=== PATIENT | female | born 1985 | race Asian ===

== ENCOUNTER 2023-07-26 12:59 | Outpatient (REF) | payer OTHER, SELFPAY ==
[2023-07-26 15:25] LABS: Influenza A PCR NEGATIVE (Negative); Influenza B PCR NEGATIVE (Negative); Resp Syncy Virus RNA Qual PCR NEGATIVE (Negative); SARS COV2 PCR INHOUSE NEGATIVE (Negative)
== END 2023-07-26 13:00 | disposition home or self-care (01) ==
LOC: HO.CHCLNP 12:59
PROVIDERS: Visit Provider Family Medicine
DX: R05.2 Subacute cough (principal)
CPT/HCPCS: 0241U

== ENCOUNTER 2023-07-26 16:41 | Outpatient (REF) | payer OTHER, SELFPAY ==
--- NOTE | ~2023-07-26 | XR_ITS ---
EXAMINATION: CHEST 2 VIEW RIGHT RIBS 3 VIEWS CLINICAL INFORMATION: 38-year-old woman with persistent right-sided rib pain, no trauma. COMPARISON: None. TECHNIQUE: 2 views of the chest and 3 views of the right rib cage. FINDINGS: CHEST: The cardiomediastinal silhouette is within normal limits. Pulmonary vascularity is normal. The lungs are clear. No consolidation or effusion. The thoracic spine is unremarkable. RIGHT RIBS: No displaced rib fracture. No appreciable XR/XR chest 2V IMPRESSION: No consolidation or effusion. No visible rib fracture or focal osseous lesion.
--- NOTE | ~2023-07-26 | XR_ITS ---
EXAMINATION: CHEST 2 VIEW RIGHT RIBS 3 VIEWS CLINICAL INFORMATION: 38-year-old woman with persistent right-sided rib pain, no trauma. COMPARISON: None. TECHNIQUE: 2 views of the chest and 3 views of the right rib cage. FINDINGS: CHEST: The cardiomediastinal silhouette is within normal limits. Pulmonary vascularity is normal. The lungs are clear. No consolidation or effusion. The thoracic spine is unremarkable. RIGHT RIBS: No displaced rib fracture. No appreciable XR/XR ribs RT 2V IMPRESSION: No consolidation or effusion. No visible rib fracture or focal osseous lesion.
== END 2023-07-26 16:42 | disposition home or self-care (01) ==
LOC: HO.XRAY 16:41
PROVIDERS: PCP Family Medicine; Visit Provider Family Medicine
DX: R07.81 Pleurodynia (principal); R05.2 Subacute cough
CPT/HCPCS: 71046; 71100

== ENCOUNTER 2024-03-04 13:03 | Outpatient (REF) | payer OTHER, SELFPAY ==
[2024-03-04 15:01] LABS: HCG Quantitative 34024 mIU/mL
== END 2024-03-04 13:04 | disposition home or self-care (01) ==
LOC: HO.CHCLDS 13:03
PROVIDERS: Visit Provider Family Medicine
DX: Z32.01 Encounter for pregnancy test, result positive (principal)
CPT/HCPCS: 36415; 84702

== ENCOUNTER 2024-11-29 13:50 | Outpatient (REF) | payer MEDICAID, SELFPAY ==
--- OUTSIDE RECORDS SUMMARY | 2024-11-29 13:54 | XMS_ITS | Clinical Summary ---
Author Organization [facility] Address [address] [place] [id number] Care Team Providers Care Vice President Of Marketing Name Role Phone Unavailable Primary Care Provider Unavailabl e Social History Tobacco Use Types Packs/Day Years Used Date Smoking Tobacco: Never Assessed Comments Unknown Sex and Gender Information Value Date Recorded Sex Assigned at Not on file Legal Sex Female 9:21 AM EST Gender Identity Not on file Sexual Orientation Not on file Plan of Treatment Health Maintenance Due Date Last Done Comments DTaP,Tdap,and Td Vaccines (1 - Tdap) 2006 Hepatitis B Vaccines (1 of 3 - 19+ 3-dose series) 2006 Cervical Cancer Screening: P ap Smear 2008 COVID-19 Vaccine ( - 2023-2 5 season) 2023 Depression Screening 04/24/2024 Influenza Vaccine (#1) 2024 HIB Vaccines Aged Out No longer eligi ble based on patient's age to complete this topic HPV Vaccines Aged Out No longer eligi ble based on patient's age to complete this topic Hepatitis A Vaccines Aged Out No long er eligible based on patient's age to complete this topic IPV Vaccines Aged Out No longer eligi ble based on patient's age to complete this topic MMR Vaccines Aged Out No longer eligi ble based on patient's age to complete this topic Meningococcal ACWY Vaccine Aged Out N o longer eligible based on patient's age to complete this topic Meningococcal B Vaccine Aged Out No l onger eligible based on patient's age to complete this topic Pneumococcal Vaccine: Pediat rics (0 to 5 Years) and At-Risk Patients (6 to 49 Years) Aged Out No longer eligible b ased on patient's age to complete this topic RSV Immunization Patients Un mansi 20 months Aged Out No longer eligible b ased on patient's age to complete this topic Varicella Vaccines Aged Out No longer eligible based on patient's age to complete this topic
[2024-11-29 16:16] LABS: MANUAL DIFF FLAG NO
[2024-11-29 16:18] LABS: Hematocrit 33.4 % (37.0-47.0); Hemoglobin 11.3 g/dl (12.0-16.0); Imm Gran Abs Auto 0.02 X10*3/uL (0.00-0.03); Imm Gran Pct Auto 0.3 % (0.0-0.4); Lymphocytes Absolute Auto 3.7 X10*3/uL (1.2-4.9); Mean Corpuscular HGB Conc 33.8 g/dl (31.0-35.0); Mean Corpuscular Hemoglobin 26.9 pg (27.0-33.0); Mean Corpuscular Volume 79.5 fL (80.0-98.0); NRBC Abs Auto 0.000 X10*3/uL (0.0-0.012); NRBC Pct Auto 0.0 /100WBC (0.0-0.2); Platelet Count 293 X10*3/uL (160-400); Red Blood Count 4.20 X10*6/uL (4.20-5.50); White Blood Count 8.0 X10*3/uL (4.8-10.8)
[2024-11-29 16:32] LABS: Alanine Aminotransferase 11 U/L (0-31); Albumin Level 4.4 g/dL (3.5-5.0); Alkaline Phosphatase 64 U/L (39-117); Amylase 61 U/L (28-100); Anion Gap 11 (12-20); Aspartate Amino Transferase 21 U/L (5-31); Blood Urea Nitrogen 12 mg/dL (9-16); Calcium 8.8 mg/dL (8.4-10.2); Carbon Dioxide 25 mmol/L (22-29); Chloride 106 mmol/L (96-108); Estimated Glomerular Filt Rate > 60; Lipase 25 U/L (8-78); Potassium 3.7 mmol/L (3.3-5.1); Sodium 138 mmol/L (135-145); Total Protein 7.4 g/dL (6.5-8.0)
== END 2024-11-29 13:51 | disposition home or self-care (01) ==
LOC: HO.HHCL 13:50
PROVIDERS: PCP Family Medicine; Visit Provider Internal Medicine
DX: R10.31 Right lower quadrant pain (principal); R12 Heartburn
CPT/HCPCS: 36415; 80053; 82150; 83690; 85025

== ENCOUNTER 2024-12-02 16:37 | Outpatient (REF) | payer MEDICAID, SELFPAY ==
--- OUTSIDE RECORDS SUMMARY | 2024-12-02 16:39 | XMS_ITS | Clinical Summary ---
Author Organization [facility] [[email or web address]] Address [address] [place] [id number] Care Team Providers Care Supervisor Telephone Answering Service Name Role Phone Unavailable Primary Care Provider [...]
== END 2024-12-02 16:38 | disposition home or self-care (01) ==
LOC: HO.HHCLNP 16:37
PROVIDERS: Visit Provider Internal Medicine
DX: R12 Heartburn (principal)
CPT/HCPCS: 87338

== ENCOUNTER 2025-03-04 15:47 | Outpatient (REF) | payer MEDICAID, SELFPAY ==
--- NOTE | ~2025-03-04 | US_ITS ---
EXAMINATION: US PELVIS CLINICAL INFORMATION: pelvic/lower abdominal pain COMPARISON: None available. TECHNIQUE: Ultrasound of the pelvis is performed using both transabdominal and transvaginal transducers along with Doppler. Transvaginal imaging is performed due to inadequate visualization transabdominally. FINDINGS: Uterus: The uterus is anteflexed and measures 9.0 x 4.2 cm. The double wall endometrial thickness is 11 mm. The uterus appears heterogeneous with coarse echotexture.. No visible fibroid. Adnexa: Both ovaries are visualized. There is normal color flow to the adnexa. There is no ovarian torsion. There is no pelvic ascites or fluid collection. Right ovary measures 3.2 x 1.8 x 1.9 cm. Left ovary measures 4.4 x 2.3 x 2.8 cm. There is a 2.7 cm dominant follicle. US/US pelvic and transvaginal IMPRESSION: Heterogeneous coarse echotexture of the uterus without discrete fibroid raises question of adenomyomatosis. Electronically signed by: Bora Alonso MD 03/04/2025 04:58 PM EST
--- OUTSIDE RECORDS SUMMARY | 2025-03-04 17:14 | XMS_ITS | Clinical Summary ---
Author Organization [facility] Address [address] [place] [phone] Care Team Providers Care Vacuum Drier Tender Name Role Phone Unavailable Primary Care Provider [...] Cervical Cancer Screening: P ap Smear 2008 HPV Vaccines (1 - 3-dose SCD M series) 2014 Depression Screening 04/24/2024 COVID-19 Vaccine ( - 2023-2 5 season) 2024 Influenza Vaccine (#1) 2024 RSV Immunization Adult Patie nts (1 - 1-dose 75+ series) 2062 HIB Vaccines Aged Out No longer eligi [...]
--- OUTSIDE RECORDS SUMMARY | 2025-03-04 17:14 | XMS_ITS | Encounter Summary ---
Author Organization [facility] [employer] [facility] Address [address] [place] [address] [address] [place] [address] Care Team Providers Care Design Project Manager Name Role Phone Elis Vitale MD Primary Care Provider [phone] Reason for Visit * Reason Onset Date Comments Referral 03/18/2024 Encounter Details Date Type Department Care Team ([facility] st Contact Info) Description 03/18/2024 Telephone [facility] MEDICINE [address] [place] [address] Elis Vitale MD [address] [place] [phone] Referral Social History Tobacco Use Types Packs/Day Years Used Date Smoking Tobacco: Never Smokeless Tobacco: Never Comments Unknown Sex and Gender Information Value Date Recorded Sex Assigned at Female 02/21/2022 10:38 AM EDT Legal Sex Female 10:38 AM EDT Gender Identity Female 02/21/2022 10:38 AM EDT Sexual Orientation Straight 02/21/2022 10 :38 AM EDT documented as of this encounter Miscellaneous Notes * Telephone Encounter - Yolande Wing - 03/18/2024 4:52 PM EST VM left for patient with information for [facility], they do accept [facility]. * Telephone Encounter - Justen Maradiaga - 03/18/2024 2:59 PM EST Tc from pt calling in regards to OBGYN referral requesting a alternative facility due to current one not taking pt's insurance. If any questions you can contact pt at [phone]. documented in this encounter Plan of Treatment Not on file documented as of this encounter Visit Diagnoses Not on filedocumented in this encounter Care Teams Design Project Manager Relationship Specialty Start Date End Date Elis Vitale MD [address] [place] [phone] PCP - General Family Medicine 05/31/21 documented as of this encounter
--- OUTSIDE RECORDS SUMMARY | 2025-03-04 17:14 | XMS_ITS | Clinical Summary ---
Author Organization [facility] Address [address] [place] [address] [address] [place] [address] Care Team Providers Care Carrier Washer Name Role Phone Elis Vitale MD Primary Care Provider Allergies No known active allergies Medications albuterol 108 (90 Base) MCG/ACT inhaler INHALE 2 PUFFS 4 TIMES EVERY DAY 09/15/2021 Active ipratropium (Atrovent) 0.06 % nasal spray INHALE 2 SPRAYS EACH NOSTIRL 4 TIMES PER DAY 07/19/2023 Active benzonatate (Tessalon) 200 MG capsule TAKE 1 CAPSULE (ORAL) 2 TO 3 TIMES PER DAY (COUGH) FOR 14 DAYS 07/19/2023 Active multivitamin () 27-0.8 MG tabletIndicatio ns: test positive Take 1 tablet by mouth Once per day. 120 tablet 3 03/07/2024 Active famotidine (Pepcid) 20 MG tabletIndicatio ns:Heartburn Take 1 tablet (20 mg) by mouth 2 times daily. 60 tablet 11/29/2024 6 Active Active Problems Problem Noted Date Diagnosed Date RLQ abdominal pain 11/29/2024 Assessment & Plan (11/29/2024 1:54 PM EDT): Patient will be contacted with results Heartburn 11/29/2024 Assessment & Plan (11/29/2024 1:54 PM EDT): I advise patient to avoid NSAIDs, spicy and acid food, I advise to eat at the same time every day, I advise to elevate the head of the bed and take medications as prescribe Subacute cough 07/26/2023 Assessment & Plan (07/26/2023 9:19 PM EDT): Persistent cough and right-sided pain with no history of trauma or chronic respiratory conditions. Plan to send the patient for x-rays of the lungs and ribs to rule out any underlying issues. Prescribed antibiotics and dextromethorphan for the cough, given the duration and severity of symptoms. Advised to complete the x- rays at [facility] within two days. Follow-up will be based on the results of the x-rays. Rib pain on right side 07/26/2023 Encounters Date Type Department Care Team Description 02/19/2025 3:15 PM EDT Nurse Only [facility] [address] [place] [address] Magalie Powers RN Encounter for immunization 02/19/2025 Travel from Last 3 Months Immunizations Immunization Administration Dates Next Due Influenza injectable quadriv alent preservative free 02/07/2023,01/10/2022,01/27/2021 Influenza, seasonal, injecta ble, preservative free 02/19/2025,01/23/2024 Social History Tobacco Use Types Packs/Day Years Used Date Smoking Tobacco: Never Smokeless Tobacco: Never Tobacco Cessation:Counseling Given: Not Answered Comments No Sex and Gender Information Value Date Recorded Sex Assigned at Female 02/21/2022 10:38 AM EDT Legal Sex Female 10:38 AM EDT Gender Identity Female 02/21/2022 10:38 AM EDT Sexual Orientation Straight 02/21/2022 10 :38 AM EDT Last Filed Vital Signs Vital Sign Reading Time Taken Comments Blood Pressure 135/78 11/29/2024 1:10 PM EDT Pulse 78 11/29/2024 1:10 PM EDT Temperature 36.7 C (98 F) 11/29/2024 1:10 PM EDT Respiratory Rate 16 11/29/2024 1:10 PM EDT Oxygen Saturation 98% 06/17/2022 2:19 PM EST Inhaled Oxygen Concentration - - Weight 81.9 kg (180 lb 9.6 oz) 11/29/2024 1:10 P M EDT Height 162.6 cm (5' 4 ) 11/29/2024 1:10 PM EDT Body Mass Index 31 11/29/2024 1:10 PM EDT Plan of Treatment Health Maintenance Due Date Last Done Comments Dental Prophylaxis 1987 Depression Screening 1987 SDOH Screening 1987 Disability Screening 1987 Alcohol/Substance Use Screening 1999 Family Planning (PISQ) 2002 HPV Vaccines (1 - 3-dose series) 2002 DTaP/Tdap/Td Vaccines (1 - Tdap) 2006 Hepatitis B Vaccines (1 of 3 - 19+ 3-dose series) 2006 Dental Oral Exam 07/30/2022 01/28/2022 Dental X-Ray: Bitewings 01/29/2023 01/28/2022, 11/05 COVID-19 Vaccine ( season) 2024 09/14/2020, 08/24/2020 Dental X-Ray: Full Mouth 01/29/2025 01/28/2022 Tobacco Screening 11/29/2025 11/29/2024 Cervical Cancer Screening 07/22/2026 HPV/Cotest 07/22/2026 07/22/2021 Pap Smear 07/22/2026 07/22/2021 Zoster Vaccines (1 of 2) 2037 RSV Patients and Patients Aged 60 years or older (1 - 1-dose 75+ series) 2062 HIV Screening Completed 05/31/2021 Hepatitis C Screening Completed 05/31/2021 Influenza Vaccine Completed 02/19/2025, , 02/07/2023, Additional history exists HIB Vaccines Aged Out No longer eligi [...] patient's age to complete this topic Meningococcal Vaccine Aged Out No jim mumtaz eligible based on patient's age to complete this topic Pneumococcal Vaccine: Pediatrics (0 to 5 Years) and At-Risk Patients (6 to 49) Years Aged Out No longer eligible based on patient's age to complete this topic RSV under 20 months Aged Out No longe r eligible based on patient's age to complete this topic Rotavirus Vaccines Aged Out No longer eligible based on patient's age to complete this topic Procedures Procedure Name Priority Date/Time Associated Diagnosis Comments US PELVIS TRANSVAGINAL Routine 3:55 PM EST RLQ abdominal pain HELICOBACTER PYLORI AG, EIA, STOOL Routine 12/02/2024 11:45 AM EDT Heartburn INTRAORAL - COMPLETE SERIES OF RADIOGRAPHIC IMAGES Routine 01/28/2022 12:00 AM EDT COMPREHENSIVE ORAL EVALUATION - NEW OR ESTABLISHED PATIENT Routine 01/28/2022 12:00 AM EDT THINPREP IMAGING PAP AND HPV MRNA E6/E7 WITH REFLEX TO HPV 16,18/45 Routine 07/22/2021 4:29 PM EDT ZZZ HISTORICAL HEPATITIS C AB W/REFL TO HCV RNA, QN, PCR Routine 05/31/2021 10:03 AM EST HIV 1/2 ANTIGEN/ANTIBODY, FOURTH GENERATION W/RFL Routine 05/31/2021 10:03 AM EST from Last 3 Months or Most Recently Relevant to Health Maintenance Results * US Pelvis Transvaginal (03/04/2025 3:55 PM EST) Anatomical Region Laterality Modality Pelvis Ultrasound 03/04/2025 3:55 PM EST Narrative 03/04/2025 5:01 PM EST [address] [address] Ultrasound Report Signed Patient: Brittany Resendiz MR#: [id number] : 1985 Acct:[id number] Age/Sex: 39 / F ADM Date: 03/04/25 Loc: HO.US Attending Dr: Anne Clarke MD Ordering Physician: Anne Crump MD Date of Service: 03/04/25 Procedure(s): US pelvic and transvaginal Accession Number(s): [id number] cc: Anne Crump MD; Elis Vitale MD Reason for Exam: pelvic/lower adomen pain EXAMINATION: US PELVIS CLINICAL INFORMATION: pelvic/lower abdominal pain COMPARISON: None available. TECHNIQUE: Ultrasound of the pelvis is performed using both transabdominal and transvaginal transducers along with Doppler. Transvaginal imaging is performed due to inadequate visualization transabdominally. FINDINGS: Uterus: The uterus is anteflexed and measures 9.0 x 4.2 cm. The double wall endometrial thickness is 11 mm. The uterus appears heterogeneous with coarse echotexture.. No visible fibroid. Adnexa: Both ovaries are visualized. There is normal color flow to the adnexa. There is no ovarian torsion. There is no pelvic ascites or fluid collection. Right ovary measures 3.2 x 1.8 x 1.9 cm. Left ovary measures 4.4 x 2.3 x 2.8 cm. There is a 2.7 cm dominant follicle. US/US pelvic and transvaginal IMPRESSION: Heterogeneous coarse echotexture of the uterus without discrete fibroid raises question of adenomyomatosis. Electronically signed by: Bora Alonso MD 03/04/2025 04:58 PM [facility] Dictated By: Bora Alonso MD Signed By: <Electronically signed by Bora Alonso MD in OV> 03/04/25 1658 DD/ 1555 TD/TT: 03/04/25 1621 Document Clerk: Procedure Note Donotuseinterpreter, Image - 03/04/[address] [address] Ultrasound Report Signed Patient: Sary Resendiz#: [id number] : 1985Acct:[id number] Age/Sex: 39 / FADM Date: 03/04/25 Loc: HO.US Attending Dr: Anne Clarke MD Ordering Physician: Anne Crump MD Date of Service: 03/04/25 Procedure(s): US pelvic and transvaginal Accession Number(s): [id number] cc: Anne Crump MD; Elis Vitale MD Reason for Exam: pelvic/lower adomen pain EXAMINATION: US PELVIS CLINICAL INFORMATION: pelvic/lower abdominal pain COMPARISON: None available. TECHNIQUE: Ultrasound of the pelvis is performed using both transabdominal and transvaginal transducers along with Doppler. Transvaginal imaging is performed due to inadequate visualization transabdominally. FINDINGS: Uterus: The uterus is anteflexed and measures 9.0 x 4.2 cm. The double wall endometrial thickness is 11 mm. The uterus appears heterogeneous with coarse echotexture.. No visible fibroid. Adnexa: Both ovaries are visualized. There is normal color flow to the adnexa. There is no ovarian torsion. There is no pelvic ascites or fluid collection. Right ovary measures 3.2 x 1.8 x 1.9 cm. Left ovary measures 4.4 x 2.3 x 2.8 cm. There is a 2.7 cm dominant follicle. US/US pelvic and transvaginal IMPRESSION: Heterogeneous coarse echotexture of the uterus without discrete fibroid raises question of adenomyomatosis. Electronically signed by: Bora Alonso MD 03/04/2025 04:58 PM [facility] Dictated By: Bora Alonso MD Signed By: <Electronically signed by Bora Alonso MD in OV> 03/04/25 1658 DD/ 1555 TD/TT: 03/04/25 1621 Document Clerk: Anne Clarke MD [facility] US PROCEDURES Fin al Result * Helicobacter pylori??Antigen, EIA, Stool (12/02/2024 11:45 AM EDT) H pylori Ag Stool SEE NOTE [facility] Comment:HELICOBACTER PYLORI AG, EIA, STOOL Micro Number: [id number] Test Status: Final Specimen Source: Stool Specimen Quality: Adequate H.pylori Ag: Not Detected Antimicrobials, proton pump inhibitors, and bismuth preparations inhibit H. pylori and ingestion up to two weeks prior to testing may cause false negative results. If clinically indicated the test should be repeated on a new specimen obtained two weeks after discontinuing treatment. Reference Range: Not DetectedTHIS TEST WAS PERFORMED AT:[facility] [address] [id number] TERESA DELATORRE MD Stool Rectal contents / Unknown 12/02/2024 11:45 AM EDT 12/02/2024 4:37 PM EDT Anne Clarke MD LAB BODY FLUIDS AND S TOOLS ORDERABLES Final Result [facility] [address] [place] [address] [phone] * THINPREP TIS PAP AND HPV mRNA E6/E7 WITH REFLEX TO HPV 16,18/45 (07/22/2021 4:29 PM EDT) Clinical Information: None given [facility] COMMENT SEE COMMENT [facility] Comment: EXPLANATORY NOTE: The Pap is a screening test for cervical cancer. It is not a diagnostic test and is subject to false negative and false positive results. It is most reliable when a satisfactory sample, regularly obtained, is submitted with relevant clinical findings and history, and when the Pap result is evaluated along with historic and current clinical information. COMMENT: This Pap test has been evaluated with computer assisted technology. [facility] Maintenance Of Way Supervisor: SEE COMMENT [facility] Comment: [facility], CT(ASCP) CT screening location: [address] [address] HPV nRNA E6/E7 Not Detected Not Detected [facility] Comment: Methodology: Superintendent Service-Mediated Amplification This assay detects E6/E7 viral messenger RNA (mRNA) from 14 high-risk HPV types (16,18,31,33,35,39,45,51,52,56,58,59,66,68). The analytical performance characteristics of this assay have been determined by [facility]. The modifications have not been cleared or approved by the FDA. This assay has been validated pursuant to the CLIA regulations and is used for clinical purposes. For additional information, please refer to http://education.Ajaline.[employer]/faq/DDH591t1 (This link if provided for information/ educational purposes only.) Interpretation/Re sult: Negative for intraepithelial lesion or malignancy. [facility] LMP: NONE [facility] Prev. BX: NONE [facility] Prev. PAP: NONE [facility] SOURCE: None given [facility] Statement Of Adequacy: SEE COMMENT [facility] Comment: Satisfactory for evaluation. Endocervical/transformation zone component present. Age and/or menstrual status not provided 07/22/2021 4:29 PM EDT Elis Vitale MD LAB PATHOLOGY ORDERABLES Nette l Result Performing Organization Address [facility] de Phone Number [facility] [address] * HEPATITIS C AB W/REFL TO HCV RNA, QN, PCR (05/31/2021 10:03 AM EST) HEPATITIS C ANTIBODY NON-REACT VERNON NON-REACT VERNON [facility] INDEX 0.01 <1.00 [facility] Comment: HCV antibody was non-reactive. There is no laboratory evidence of HCV infection. In most cases, no further action is required. However, if recent HCV exposure is suspected, a test for HCV RNA (test code 20384) is suggested. For additional information please refer to http://education.Insight [employer]/faq/WWY72i6 (This link is being provided for informational/ educational purposes only.) 05/31/2021 10:0 3 AM EST Elis Vitale MD HISTORICAL/NON ORDERABLE LABS Final Result Performing Organization Address [facility] Co de Phone Number [facility] [address] * HIV 1/2 ANTIGEN/ANTIBODY,FOURTH GENERATION W/RFL (05/31/2021 10:03 AM EST) HIV-1/2 ANTIGEN AND ANTIBODIES, 4TH GENERATION W/ REFLEX NON-REACT VERNON NON-REACT VERNON [facility] Comment: HIV-1 antigen and HIV-1/HIV-2 antibodies were not detected. There is no laboratory evidence of HIV infection. PLEASE NOTE: This information has been disclosed to you from records whose confidentiality may be protected by state law. If your state requires such protection, then the state law prohibits you from making any further disclosure of the information without the specific written consent of the person to whom it pertains, or as otherwise permitted by law. A general authorization for the release of medical or other information is NOT sufficient for this purpose. For additional information please refer to http://education.[employer]/faq/TJE512 (This link is being provided for informational/ educational purposes only.) The performance of this assay has not been clinically validated in patients less than 2 years old. 05/31/2021 10:0 3 AM EST us Elis Vitale MD LAB BLOOD ORDERABLES Final Re sult Performing Organization Address City/State/[facility] Co wi Phone Number [facility] [address] from Last 3 Months or Most Recently Relevant to Health Maintenance [place] [address] [place] [address] C3 [facility] MEDICAID LIMITED ADULT Care Teams Carrier Washer Relationship Specialty Start Date End Date Elis Vitale MD [address] [place] [id number] PCP - General Family Medicine 05/31/21
== END 2025-03-04 15:48 | disposition home or self-care (01) ==
LOC: HO.US 15:47
PROVIDERS: PCP Family Medicine; Visit Provider Internal Medicine
DX: R10.31 Right lower quadrant pain (principal)
CPT/HCPCS: 76830; 76856

== ENCOUNTER → 2025-03-04 15:49 | Outpatient (BNV) | payer MEDICAID, SELFPAY | PROVIDERS: PCP Family Medicine; Visit Provider Radiology Diagnostic Radiology | DX: R10.20 Pelvic and perineal pain unspecified side (principal) | CPT/HCPCS: 76830; 76856 ==